=== PATIENT | female | born 1985 | race African-American/Black ===

== ENCOUNTER 2016-10-03 23:06 | Emergency (ER) | payer BC | END 2016-10-03 23:17 | disposition home or self-care (01) | LOC: ER 23:06 | DX: O99.713 Diseases of the skin and subcutaneous tissue complicating pregnancy, third trimester (principal); R21 Rash and other nonspecific skin eruption; O99.513 Diseases of the respiratory system complicating pregnancy, third trimester; J45.909 Unspecified asthma, uncomplicated; Z3A.33 33 weeks gestation of pregnancy | CPT/HCPCS: 99283 ==